=== PATIENT | female | born 1940 | race Caucasian/White ===

== ENCOUNTER 2018-01-24 11:01 | Emergency (ER) | payer MEDICARE ==
[~2018-01-24] VITALS: Ht 165.1 cm; Wt 42.6 kg
[~2018-01-24 11:01] MED LIST: CITRUS CALCIUM1 EACH PO; DOXYCYCLINE 10100 M1 PO; FISH OIL 1,001000 M2 PO; LEVAQUIN 500 M500 M2 PO; LISINOPRIL10 MG PO; MAGOX 400400 MG PO; PREDNISONE 10 M10 MG PO; PROAIR HFA8.5 GM INH; PROTONIX40 M1 PO; ROBITUSSIN100 MG/53 PO; TESSALON PERLE100 MG PO
[2018-01-24 11:19] LABS: URINE BILIRUBIN NEGATIVE (Negative); URINE BLOOD 1+ (Negative); URINE CLARITY SL CLOUDY; URINE COLOR YELLOW; URINE GLUCOSE-RANDOM NEGATIVE (Negative); URINE KETONES NEGATIVE (Negative); URINE NITRITE-REFLEX NEGATIVE (Negative); URINE PROTEIN TRACE (Negative); URINE SPECIFIC GRAVITY 1.015 (1.005-1.030); URINE UROBILINOGEN 0.2 E.U./dl (0.2-1.0)
[2018-01-24 11:34] LABS: URINE LEUKOCYTES-REFLEX 3+ (Negative)
[2018-01-24 11:35] LABS: CASTS None Seen /LPF (None Seen); CRYSTALS None Seen /LPF (None Seen); MUCUS None Seen strn/LPF (None Seen); SQUAMOUS 4-10 Moderate /LPF (0-3); URINE RBC 3-10 Few /HPF (0-2); URINE WBC-REFLEX >25 Many /HPF (0-5)
[2018-01-24] MEDS ORDERED: KEFLEX500 M1 PO (11:42)
[2018-01-24 11:47] VITALS: BP 134/55
--- NOTE | 2018-03-15 11:03 | NUR ---
Nutrition: Pt assessed for low BMI, 16.9. Usual wt is 96#, today's wt is 100#. No recent wt changes. ~96# x several years. Reported fair appetite. Regular diet. Albumin 2.8. H/o: COPD/smoker, HTN. Has UTI, lung nodule. Physician indicated moderate PCM - agree. Pt likely to discharge today, but RD will order Ensure HP for dinner tonight in case pt is not dischrged. Pt would benefit from oral supplement. Otherwise, no other nutrtion interventions needed today. GOALS: continue adequate oral intake/supplement intake, no wt loss from 96#. Mild risk.
== END 2018-01-24 11:48 | disposition home or self-care (01) ==
LOC: M.ERS 11:01
PROVIDERS: Emergency Medicine Emergency Medical Services
DX: N39.0 Urinary tract infection, site not specified (principal); I10 Essential (primary) hypertension; F17.210 Nicotine dependence, cigarettes, uncomplicated; Z88.0 Allergy status to penicillin; Z90.49 Acquired absence of other specified parts of digestive tract

== ENCOUNTER 2018-03-14 16:16 | Observation (INO) | payer MEDICARE ==
[~2018-03-14] VITALS: Ht 165.1 cm; Wt 45.4 kg
[~2018-03-14 16:16] MED LIST changes: +KEFLEX500 M1 PO
[2018-03-14 16:19] VITALS: BP 160/82
[2018-03-14 16:35] LABS: URINE BILIRUBIN NEGATIVE (Negative); URINE BLOOD NEGATIVE (Negative); URINE CLARITY CLEAR; URINE COLOR YELLOW; URINE GLUCOSE-RANDOM NEGATIVE (Negative); URINE KETONES NEGATIVE (Negative); URINE LEUKOCYTES 3+ (Negative); URINE NITRITE NEGATIVE (Negative); URINE PROTEIN NEGATIVE (Negative); URINE SPECIFIC GRAVITY <= 1.005 (1.005-1.030); URINE UROBILINOGEN 0.2 E.U./dl (0.2-1.0)
[2018-03-14 16:50] LABS: MUCUS None Seen strn/LPF (None Seen); SQUAMOUS >10 Many /LPF (0-3)
[2018-03-14 16:51] LABS: TRANSITIONAL EPITHEL CELL 0-3 Few /LPF (None Seen); URINE WBC 6-15 Few /HPF (0-5)
[2018-03-14 16:52] LABS: BACTERIA None Seen /HPF (None Seen); CASTS None Seen /LPF (None Seen); CRYSTALS None Seen /LPF (None Seen); URINE RBC None Seen /HPF (0-2)
[2018-03-14 16:54] LABS: HEMATOCRIT 43.2 % (37.0-47.0); HEMOGLOBIN 14.7 gm/dL (12.0-15.0); MCH 31.1 pg (26.0-34.0); MCV 91.4 fL (80.0-100.0); MPV 7.9 fl. (7.2-11.1); NUCLEATED RBCS 1 /100WBC; PLATELET COUNT* 253 thou/uL (150-400); RBC 4.73 mil/uL (4.20-5.00); RDW-CV 14.1 % (10.5-14.5); WBC 22.4 thou/uL (4.0-11.0)
[2018-03-14 17:17] LABS: ABSOLUTE EOSINOPHILS 0.2 thou/uL (0.0-0.7); ABSOLUTE LYMPHOCYTES 18.4 thou/uL (0.8-5.3); ABSOLUTE MONOCYTES 0.4 thou/uL (0.0-1.2); ABSOLUTE NEUTROPHILS 3.4 thou/uL (1.6-8.1)
[2018-03-14 17:18] LABS: PLATELET ESTIMATE ADEQUATE
[2018-03-14 17:32] LABS: ANION GAP 4 mmol/L (7-16); BUN 10 mg/dL (7-18); CALCIUM 9.1 mg/dL (8.5-10.1); CHLORIDE 98 mmol/L (98-107); CO2 31 mmol/L (21-32); CREATININE 0.6 mg/dL (0.6-1.3); GLUCOSE 100 mg/dL (70-99); POTASSIUM 3.5 mmol/L (3.5-5.1); SODIUM 133 mmol/L (136-145)
[2018-03-14 17:36] LABS: ALKALINE PHOSPHATASE 66 U/L (46-116); LIPASE 311 U/L (73-393); SGOT 18 U/L (15-37); SGPT 20 U/L (30-65); TOTAL BILIRUBIN 0.3 mg/dL (<0.1-1.0); TOTAL PROTEIN 6.9 g/dL (6.4-8.2); TROPONIN-I LEVEL <0.06 ng/mL (<0.06)
[2018-03-14 20:03] VITALS: BP 131/65
[2018-03-14 20:05] VITALS: BP 153/82
[2018-03-14] MEDS ORDERED: FISH OIL 1,001000 M2 PO ×2 (20:22)
[2018-03-15] VITALS: BP 107/62
[2018-03-15 04:00] VITALS: BP 121/63
[2018-03-15 04:49] LABS: HEMATOCRIT 34.8 % (37.0-47.0); MCH 31.3 pg (26.0-34.0); MCHC 34.2 g/dL (28.0-37.0); MCV 91.4 fL (80.0-100.0); MPV 8.1 fl. (7.2-11.1); RBC 3.81 mil/uL (4.20-5.00); RDW-CV 13.6 % (10.5-14.5)
[2018-03-15 05:04] LABS: HEMOGLOBIN 11.9 gm/dL (12.0-15.0)
[2018-03-15 05:39] LABS: ALBUMIN 2.8 g/dL (3.4-5.0); CALCIUM 7.9 mg/dL (8.5-10.1); CREATININE 0.6 mg/dL (0.6-1.3); TOTAL BILIRUBIN 0.2 mg/dL (<0.1-1.0); TOTAL PROTEIN 4.7 g/dL (6.4-8.2)
[2018-03-15 05:43] LABS: POTASSIUM 4.5 mmol/L (3.5-5.1)
[2018-03-15 08:10] VITALS: BP 118/58
[2018-03-15] MEDS ORDERED: LEVAQUIN 500 M500 M3 PO (08:46)
[2018-03-15 11:19] VITALS: BP 118/58
[2018-03-15] MEDS ORDERED: FISH OIL 1,001000 M2 PO (11:25)
[2018-03-15 12:33] VITALS: BP 110/70
--- NOTE | 2018-03-15 14:37 | EKG ---
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 03/15/18 1436 1650 1650 Jose Manuel Mcduffie MD, [facility] /EPI
== END 2018-03-15 17:18 | disposition home or self-care (01) ==
LOC: M.ERS 16:16 → M.TBA-ER 19:05 → M.2W 19:05
PROVIDERS: Emergency Medicine Emergency Medical Services; Nurse Practitioner Family; ADMIT Internal Medicine
DX: J44.9 Chronic obstructive pulmonary disease, unspecified (principal); E44.0 Moderate protein-calorie malnutrition; I10 Essential (primary) hypertension; D72.828 Other elevated white blood cell count; R53.1 Weakness; R53.81 Other malaise; R91.1 Solitary pulmonary nodule; F17.210 Nicotine dependence, cigarettes, uncomplicated; Z72.89 Other problems related to lifestyle; Z90.49 Acquired absence of other specified parts of digestive tract; Z98.890 Other specified postprocedural states; Z87.440 Personal history of urinary (tract) infections

== ENCOUNTER 2018-10-07 09:45 | Emergency (ER) | payer MEDICARE ==
[~2018-10-07] VITALS: Ht 165.1 cm; Wt 44.5 kg
[~2018-10-07 09:45] MED LIST changes: +LEVAQUIN 500 M500 M3 PO
[2018-10-07 10:18] LABS: HEMATOCRIT 41.9 % (37.0-47.0); MCH 30.3 pg (26.0-34.0); MCHC 33.3 g/dL (28.0-37.0); MPV 7.4 fl. (7.2-11.1); NUCLEATED RBCS 1 /100WBC; PLATELET COUNT* 247 thou/uL (150-400); RBC 4.61 mil/uL (4.20-5.00); RDW-CV 14.2 % (10.5-14.5); WBC 22.2 thou/uL (4.0-11.0)
[2018-10-07 10:30] LABS: ANION GAP 10 mmol/L (7-16); BUN 11 mg/dL (7-18); CALCIUM 9.4 mg/dL (8.5-10.1); CHLORIDE 103 mmol/L (98-107); CO2 29 mmol/L (21-32); CREATININE 0.7 mg/dL (0.6-1.3); GLUCOSE 102 mg/dL (70-99); POTASSIUM 3.6 mmol/L (3.5-5.1); SODIUM 142 mmol/L (136-145); TROPONIN-I LEVEL <0.06 ng/mL (<0.06)
[2018-10-07 10:39] LABS: ALBUMIN 3.8 g/dL (3.4-5.0); ALKALINE PHOSPHATASE 63 U/L (46-116); LIPASE 482 U/L (73-393); MAGNESIUM 1.8 mg/dL (1.8-2.4); NT-PRO BRAIN NAT PEPTIDE 149 pg/mL (<300); SGOT 22 U/L (15-37); SGPT 25 U/L (30-65); TOTAL BILIRUBIN 0.4 mg/dL (<0.1-1.0); TOTAL PROTEIN 6.7 g/dL (6.4-8.2)
[2018-10-07 10:44] LABS: ABSOLUTE LYMPHOCYTES 20.6 thou/uL (0.8-5.3); ABSOLUTE MONOCYTES 0.2 thou/uL (0.0-1.2); ABSOLUTE NEUTROPHILS 1.3 thou/uL (1.6-8.1); ATYPICAL LYMPHS 3 %; PLATELET ESTIMATE ADEQUATE
[2018-10-07 12:30] VITALS: BP 145/75
[2018-10-07] MEDS ORDERED: CIPRO500 MG PO (12:35)
[2018-10-07] MEDS ORDERED: FLAGYL500 M1 PO (12:35)
--- NOTE | 2018-10-07 17:59 | EKG ---
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 : 1940 Requested By: Wenceslao Prajapati Order Number: [id number] MD: Joshua Fu Measurements Intervals [place] Rate: 85 P: 80 [place]: 168 QRS: -6 QRSD: 90 T: 74 QT: 368 QTc: 438 Interpretive Statements Sinus rhythm Probable left atrial enlargement Anteroseptal infarct, age indeterminate Compared to ECG 03/14/2018 16:50:52 Myocardial infarct finding now present Atrial premature complex(es) no longer present Electronically Signed On 10-07-2018 17:59:32 CDT by Joshua Fu [email or web address] <ELECTRONICALLY SIGNED> By: Joshua Fu MD, FACC 10/07/18 1759 1002 1002 Joshua Fu MD, FACC /EPI
== END 2018-10-07 13:01 | disposition home or self-care (01) ==
LOC: M.ERS 09:45
PROVIDERS: Emergency Medicine Emergency Medical Services
DX: R07.2 Precordial pain (principal); F17.210 Nicotine dependence, cigarettes, uncomplicated; I10 Essential (primary) hypertension; J44.9 Chronic obstructive pulmonary disease, unspecified; Z90.49 Acquired absence of other specified parts of digestive tract; Z88.0 Allergy status to penicillin

== ENCOUNTER → 2018-11-28 | Outpatient (CLI) | payer MEDICARE ==
[~2018-11-28] MED LIST changes: +CIPRO500 MG PO; +FLAGYL500 M1 PO
== END ==
LOC: M.RAD 13:00
DX: N63.20 Unspecified lump in the left breast, unspecified quadrant (principal); R92.2 Inconclusive mammogram; R92.1 Mammographic calcification found on diagnostic imaging of breast

== ENCOUNTER 2018-12-05 14:25 | Emergency (ER) | payer MEDICARE ==
[~2018-12-05] VITALS: Ht 165.1 cm; Wt 44.5 kg
[2018-12-05] MEDS ORDERED: FISH OIL 1,001000 M2 PO (14:35)
[2018-12-05 15:15] LABS: HEMATOCRIT 42.1 % (37.0-47.0); HEMOGLOBIN 14.1 gm/dL (12.0-15.0); MCH 30.4 pg (26.0-34.0); MCHC 33.5 g/dL (28.0-37.0); MCV 90.8 fL (80.0-100.0); MPV 7.8 fl. (7.2-11.1); NUCLEATED RBCS 1 /100WBC; PLATELET COUNT* 286 thou/uL (150-400); RBC 4.63 mil/uL (4.20-5.00); RDW-CV 14.3 % (10.5-14.5); WBC 21.6 thou/uL (4.0-11.0)
[2018-12-05 15:19] LABS: ANION GAP 7 mmol/L (7-16); BUN 6 mg/dL (7-18); CALCIUM 9.6 mg/dL (8.5-10.1); CHLORIDE 102 mmol/L (98-107); CO2 32 mmol/L (21-32); CREATININE 0.8 mg/dL (0.6-1.3); GLUCOSE 179 mg/dL (70-99); POTASSIUM 3.8 mmol/L (3.5-5.1); SODIUM 141 mmol/L (136-145)
[2018-12-05 15:28] LABS: ALBUMIN 3.6 g/dL (3.4-5.0); ALKALINE PHOSPHATASE 55 U/L (46-116); LIPASE 211 U/L (73-393); MAGNESIUM 1.6 mg/dL (1.8-2.4); SGOT 18 U/L (15-37); SGPT 21 U/L (30-65); TOTAL BILIRUBIN 0.3 mg/dL (<0.1-1.0); TOTAL PROTEIN 6.3 g/dL (6.4-8.2); TROPONIN-I LEVEL <0.06 ng/mL (<0.06)
[2018-12-05 15:42] LABS: ABSOLUTE LYMPHOCYTES 18.6 thou/uL (0.8-5.3); ABSOLUTE MONOCYTES 0.2 thou/uL (0.0-1.2); ABSOLUTE NEUTROPHILS 2.8 thou/uL (1.6-8.1)
[2018-12-05 15:43] LABS: PLATELET ESTIMATE ADEQUATE
[2018-12-05 16:19] LABS: URINE BILIRUBIN NEGATIVE (Negative); URINE BLOOD NEGATIVE (Negative); URINE CLARITY CLEAR; URINE COLOR YELLOW; URINE GLUCOSE-RANDOM NEGATIVE (Negative); URINE KETONES NEGATIVE (Negative); URINE LEUKOCYTES-REFLEX NEGATIVE (Negative); URINE NITRITE-REFLEX NEGATIVE (Negative); URINE PROTEIN NEGATIVE (Negative); URINE SPECIFIC GRAVITY <= 1.005 (1.005-1.030); URINE UROBILINOGEN 0.2 E.U./dl (0.2-1.0)
[2018-12-05 17:01] VITALS: BP 82/61
--- NOTE | 2018-12-06 11:10 | EKG ---
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 : 1940 Requested By: Betsy Dixon Order Number: [id number] MD: Joshua Fu Measurements Intervals [place] Rate: 85 P: 83 [place]: 180 QRS: 30 QRSD: 90 T: 81 QT: 363 QTc: 432 Interpretive Statements Sinus rhythm Atrial premature complexes RSR' in V1 or V2, right VCD or RVH Compared to ECG 10/07/2018 10:02:10 Atrial premature complex(es) now present Electronically Signed On 12-06-2018 11:09:50 CDT by Joshua Fu [email or web address] <ELECTRONICALLY SIGNED> By: Joshua Fu MD, FAC 12/06/18 1109 1518 1518 Joshua Fu MD, [facility] /EPI
== END 2018-12-05 17:03 | disposition home or self-care (01) ==
LOC: M.ERS 14:25
PROVIDERS: Nurse Practitioner Family
DX: R53.83 Other fatigue (principal); I10 Essential (primary) hypertension; J44.9 Chronic obstructive pulmonary disease, unspecified; F17.210 Nicotine dependence, cigarettes, uncomplicated; Z87.440 Personal history of urinary (tract) infections; Z88.0 Allergy status to penicillin; Z90.49 Acquired absence of other specified parts of digestive tract; Z85.6 Personal history of leukemia

== ENCOUNTER 2019-11-25 23:07 | Emergency (ER) | payer MEDICARE ==
[~2019-11-25] VITALS: Ht 165.1 cm; Wt 47.2 kg
[2019-11-25 23:31] LABS: HEMATOCRIT 40.1 % (37.0-47.0); HEMOGLOBIN 13.8 gm/dL (12.0-15.0); MCH 31.3 pg (26.0-34.0); MCHC 34.4 g/dL (28.0-37.0); MCV 91.1 fL (80.0-100.0); MPV 7.5 fl. (7.2-11.1); NUCLEATED RBCS 1 /100WBC; PLATELET COUNT* 259 thou/uL (150-400); RBC 4.41 mil/uL (4.20-5.00); RDW-CV 14.7 % (10.5-14.5); WBC 23.4 thou/uL (4.0-11.0)
[2019-11-25 23:37] LABS: CALCIUM 9.1 mg/dL (8.5-10.1); CREATININE 0.6 mg/dL (0.6-1.3); POTASSIUM 3.6 mmol/L (3.5-5.1)
[2019-11-25 23:38] LABS: INR 0.9; PROTIME 9.7 Seconds (9.20-11.50)
[2019-11-25 23:47] LABS: ALBUMIN 3.7 g/dL (3.4-5.0); MAGNESIUM 1.7 mg/dL (1.8-2.4); TOTAL BILIRUBIN 0.4 mg/dL (<0.1-1.0); TOTAL PROTEIN 6.5 g/dL (6.4-8.2)
[2019-11-26 00:14] LABS: ABSOLUTE EOSINOPHILS 0.2 thou/uL (0.0-0.7); ABSOLUTE LYMPHOCYTES 20.4 thou/uL (0.8-5.3); ABSOLUTE MONOCYTES 0.5 thou/uL (0.0-1.2); ABSOLUTE NEUTROPHILS 2.3 thou/uL (1.6-8.1); ATYPICAL LYMPHS 3 %
[2019-11-26 00:15] LABS: PLATELET ESTIMATE ADEQUATE
[2019-11-26 00:16] LABS: BURR CELLS Occasional; POIKILOCYTOSIS 1+
[2019-11-26 00:46] LABS: URINE BILIRUBIN NEGATIVE (Negative); URINE BLOOD NEGATIVE (Negative); URINE CLARITY CLEAR; URINE COLOR YELLOW; URINE GLUCOSE-RANDOM NEGATIVE (Negative); URINE KETONES NEGATIVE (Negative); URINE LEUKOCYTES-REFLEX TRACE (Negative); URINE NITRITE-REFLEX NEGATIVE (Negative); URINE PROTEIN NEGATIVE (Negative); URINE SPECIFIC GRAVITY <= 1.005 (1.005-1.030); URINE UROBILINOGEN 0.2 E.U./dl (0.2-1.0)
[2019-11-26 01:11] LABS: CASTS None Seen /LPF (None Seen); SQUAMOUS 4-10 Moderate /LPF (0-3)
[2019-11-26 01:12] LABS: BACTERIA-REFLEX 1-9 Few /HPF (None Seen); CRYSTALS None Seen /LPF (None Seen); URINE RBC 0-2 Rare /HPF (0-2); URINE WBC-REFLEX 0-5 Rare /HPF (0-5)
[2019-11-26 01:31] VITALS: BP 123/50
--- NOTE | 2019-11-26 16:36 | EKG ---
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: [facility] : 1940 Requested By: Maryuri Lemus Order Number: [id number] MD: Earle Huynh Measurements Intervals [place] Rate: 87 P: 79 [place]: 182 QRS: 24 QRSD: 88 T: 79 QT: 365 QTc: 439 Interpretive Statements Sinus rhythm Atrial premature complexes RSR' in V1 or V2, right VCD or RVH Compared to ECG 12/05/2018 15:18:58 No significant changes Electronically Signed On 11-26-2019 16:34:35 CDT by Earle Huynh [email or web address] <ELECTRONICALLY SIGNED> By: Earle Huynh MD, FAC 11/26/19 1634 2312 2312 Earle Huynh MD, [facility] /EPI
== END 2019-11-26 01:19 | disposition home or self-care (01) ==
LOC: M.ERS 23:07
PROVIDERS: Emergency Medicine
DX: I10 Essential (primary) hypertension (principal); J44.9 Chronic obstructive pulmonary disease, unspecified; F17.210 Nicotine dependence, cigarettes, uncomplicated; Z90.49 Acquired absence of other specified parts of digestive tract; Z88.0 Allergy status to penicillin

== ENCOUNTER → 2019-12-15 | Outpatient (CLI) | payer MEDICARE ==
[~2019-12-15] MED LIST changes: +CARVEDILOL6.25 M1 PO; +CIPROFLOXACIN500 M1 PO; +XARELTO10 M1 PO
== END ==
LOC: M.LAB 09:25
PROVIDERS: ATTEND Internal Medicine Gastroenterology
DX: Z01.812 Encounter for preprocedural laboratory examination (principal); K74.60 Unspecified cirrhosis of liver

== ENCOUNTER 2020-01-15 08:10 | Emergency (ER) | payer MEDICARE ==
[~2020-01-15] VITALS: Ht 160 cm; Wt 53.9 kg
[~2020-01-15 08:10] MED LIST changes: -CARVEDILOL6.25 M1 PO; -CIPROFLOXACIN500 M1 PO; -XARELTO10 M1 PO
[2020-01-15] MEDS ORDERED: CARVEDILOL6.25 M1 PO (08:18)
[2020-01-15] MEDS ORDERED: XARELTO10 M1 PO (08:19)
[2020-01-15 09:17] LABS: HEMOGLOBIN 14.1 gm/dL (12.0-15.0)
[2020-01-15 09:19] LABS: HEMATOCRIT 40.3 % (37.0-47.0); MCH 31.7 pg (26.0-34.0); MCV 90.8 fL (80.0-100.0); MPV 8.1 fl. (7.2-11.1); NUCLEATED RBCS 1 /100WBC; PLATELET COUNT* 246 thou/uL (150-400); RBC 4.44 mil/uL (4.20-5.00); RDW-CV 14.4 % (10.5-14.5)
[2020-01-15 09:29] LABS: APTT 30.1 Seconds (25.0-31.3); INR 1.2; PROTIME 12.4 Seconds (9.20-11.50)
[2020-01-15 09:37] LABS: CALCIUM 8.6 mg/dL (8.5-10.1); CREATININE 0.7 mg/dL (0.6-1.3); POTASSIUM 3.9 mmol/L (3.5-5.1)
[2020-01-15 09:42] LABS: ALBUMIN 3.7 g/dL (3.4-5.0); CK-MB MASS 0.6 ng/mL (<0.5-3.6); MAGNESIUM 1.9 mg/dL (1.8-2.4); TOTAL BILIRUBIN 0.7 mg/dL (<0.1-1.0); TOTAL PROTEIN 6.4 g/dL (6.4-8.2)
[2020-01-15 09:57] LABS: ABSOLUTE LYMPHOCYTES 16.6 thou/uL (0.8-5.3); ABSOLUTE MONOCYTES 0.4 thou/uL (0.0-1.2); ATYPICAL LYMPHS 66 %
[2020-01-15 09:59] LABS: PLATELET ESTIMATE ADEQUATE
[2020-01-15 10:03] LABS: BURR CELLS 2+
[2020-01-15 10:04] LABS: OVALOCYTES Occasional; POIKILOCYTOSIS 2+
[2020-01-15 10:25] LABS: URINE BILIRUBIN NEGATIVE (Negative); URINE BLOOD NEGATIVE (Negative); URINE CLARITY CLEAR; URINE COLOR YELLOW; URINE GLUCOSE-RANDOM NEGATIVE (Negative); URINE KETONES NEGATIVE (Negative); URINE NITRITE-REFLEX NEGATIVE (Negative); URINE PROTEIN NEGATIVE (Negative); URINE UROBILINOGEN 0.2 E.U./dl (0.2-1.0)
[2020-01-15 10:26] LABS: URINE LEUKOCYTES-REFLEX 2+ (Negative)
[2020-01-15 10:30] LABS: SQUAMOUS >10 Many /LPF (0-3)
[2020-01-15 10:32] LABS: URINE RBC None Seen /HPF (0-2); URINE WBC-REFLEX 6-15 Few /HPF (0-5)
[2020-01-15 10:33] LABS: CASTS None Seen /LPF (None Seen); CRYSTALS None Seen /LPF (None Seen); MUCUS None Seen strn/LPF (None Seen)
[2020-01-15] MEDS ORDERED: CIPROFLOXACIN500 M1 PO (10:45)
[2020-01-15 10:54] VITALS: BP 165/79
--- NOTE | 2020-01-15 12:19 | EKG ---
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 : 1940 Requested By: Surinder Wilkins Order Number: [id number] MD: Joshua Fu Measurements Intervals [place] Rate: 63 P: 77 [place]: 166 QRS: -13 QRSD: 84 T: 72 QT: 408 QTc: 418 Interpretive Statements Sinus rhythm RSR' in V1 or V2, probably normal variant Compared to ECG 11/25/2019 23:12:09 Atrial premature complex(es) no longer present Electronically Signed On 01-15-2020 12:18:56 CDT by Joshua Fu [email or web address] <ELECTRONICALLY SIGNED> By: Joshua Fu MD, [facility] 01/15/20 1218 0825 4 Joshua Fu MD, [facility] /EPI
== END 2020-01-15 10:56 | disposition home or self-care (01) ==
LOC: M.ERS 08:10
PROVIDERS: Emergency Medicine
DX: N39.0 Urinary tract infection, site not specified (principal); I10 Essential (primary) hypertension; F17.210 Nicotine dependence, cigarettes, uncomplicated; J44.9 Chronic obstructive pulmonary disease, unspecified; I48.91 Unspecified atrial fibrillation; Z87.440 Personal history of urinary (tract) infections; Z90.89 Acquired absence of other organs; Z79.899 Other long term (current) drug therapy; Z88.0 Allergy status to penicillin

== ENCOUNTER 2020-01-26 09:35 | Emergency (ER) | payer MEDICARE ==
[~2020-01-26] VITALS: Ht 165.1 cm; Wt 46.7 kg
[~2020-01-26 09:35] MED LIST changes: +CARVEDILOL6.25 M1 PO; +CIPROFLOXACIN500 M1 PO; +XARELTO10 M1 PO
[2020-01-26 10:42] LABS: HEMATOCRIT 40.5 % (37.0-47.0); HEMOGLOBIN 13.9 gm/dL (12.0-15.0); MCH 31.3 pg (26.0-34.0); MCHC 34.3 g/dL (28.0-37.0); MCV 91.2 fL (80.0-100.0); MPV 7.9 fl. (7.2-11.1); NUCLEATED RBCS 0 /100WBC; PLATELET COUNT* 217 thou/uL (150-400); RBC 4.45 mil/uL (4.20-5.00); RDW-CV 13.9 % (10.5-14.5); WBC 19.5 thou/uL (4.0-11.0)
[2020-01-26 10:46] LABS: URINE BILIRUBIN NEGATIVE (Negative); URINE BLOOD NEGATIVE (Negative); URINE CLARITY CLEAR; URINE COLOR YELLOW; URINE GLUCOSE-RANDOM NEGATIVE (Negative); URINE KETONES NEGATIVE (Negative); URINE LEUKOCYTES-REFLEX NEGATIVE (Negative); URINE NITRITE-REFLEX NEGATIVE (Negative); URINE PROTEIN NEGATIVE (Negative); URINE UROBILINOGEN 0.2 E.U./dl (0.2-1.0)
[2020-01-26 10:52] LABS: CALCIUM 8.9 mg/dL (8.5-10.1); CREATININE 0.6 mg/dL (0.6-1.3); POTASSIUM 4.3 mmol/L (3.5-5.1)
[2020-01-26 10:56] LABS: ALBUMIN 3.7 g/dL (3.4-5.0); TOTAL BILIRUBIN 0.7 mg/dL (<0.1-1.0); TOTAL PROTEIN 6.3 g/dL (6.4-8.2)
[2020-01-26 11:16] LABS: ABSOLUTE LYMPHOCYTES 16.8 thou/uL (0.8-5.3); ABSOLUTE MONOCYTES 0.2 thou/uL (0.0-1.2); ABSOLUTE NEUTROPHILS 2.5 thou/uL (1.6-8.1); ATYPICAL LYMPHS 5 %
[2020-01-26 11:19] LABS: PLATELET ESTIMATE ADEQUATE
[2020-01-26 11:21] LABS: SCHISTOCYTES 1+
[2020-01-26 11:22] LABS: OVALOCYTES 1+
[2020-01-26 12:51] VITALS: BP 155/77
--- NOTE | 2020-01-26 17:07 | EKG ---
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
== END 2020-01-26 12:53 | disposition home or self-care (01) ==
LOC: M.ERS 09:35
PROVIDERS: Personal Emergency Response Attendant
DX: I16.0 Hypertensive urgency (principal); I10 Essential (primary) hypertension; I48.91 Unspecified atrial fibrillation; K74.60 Unspecified cirrhosis of liver; F17.210 Nicotine dependence, cigarettes, uncomplicated; Z90.49 Acquired absence of other specified parts of digestive tract; Z98.82 Breast implant status; Z88.0 Allergy status to penicillin

== ENCOUNTER → 2020-02-24 | Outpatient (CLI) | payer MEDICARE ==
--- NOTE | 2020-02-24 15:53 | 2DMMODE ---
[place] [address] 2 D/M-MODE ECHOCARDIOGRAM Name: HAYLEY PEREZ Room: [facility]#: [id number] Admission: 02/24/20 Attend Phys: Earle Huynh, Discharge: Date of : 40 Date of Service: 02/24/20 1552 Report #: [id number] THIS REPORT FOR: cc: Pierre Swann Adam J DO Blick, David R. MD [facility] ~ APPROVED REPORT Study performed: 02/24/2020 14:28:42 EXAM: Comprehensive 2D, Doppler, and color-flow Echocardiogram Patient Location: Out-Patient Status: routine BSA: 1.50 HR: 72 bpm BP: 144/78 mmHg Rhythm: NSR Other Information Study Quality: Good Indications Atrial Fibrillation 2D Dimensions IVSd: 7.44 (7-11mm) LVOT Diam: 19.70 (18-24mm) LVDd: 42.30 mm PWd: 7.44 (7-11mm) Ascending Ao: 29.35 (22-36mm) LVDs: 25.79 (25-40mm) Aortic Root: 33.49 mm Volumes Left Atrial Volume (Systole) LA ESV Index: 26.30 mL/m2 Aortic Valve AoV Peak Christiano.: 0.96 m/s AO Peak Gr.: 3.72 mmHg LVOT Max P.27 mmHg AO Mean Gr.: 2.06 mmHg LVOT Mean P.06 mmHg LVOT Max V: 0.75 m/s AO V2 VTI: 20.21 cm LVOT Mean V: 0.47 m/s ASHWINI (VTI): 2.55 cm2 LVOT V1 VTI: 16.91 cm AI [place]: 1.39 m/s2 [place] [address] 2 D/M-MODE ECHOCARDIOGRAM Name: HAYLEY PEREZ Room: [facility]#: [id number] Admission: 02/24/20 Attend Phys: Earle Huynh, Discharge: Date of : 40 Date of Service: 02/24/20 1552 Report #: [id number] AI PHT: 682.34 ms Mitral Valve E/A Ratio: 1.08 MV Decel. Time: 188.41 ms MV E Max Christiano.: 0.60 m/s MV PHT: 54.64 ms MVA (PHT): 4.03 cm2 TDI E/Lateral E': 6.67 E/Medial E': 7.50 Medial E' Christiano.: 0.08 m/s Lateral E' Christiano.: 0.09 m/s Pulmonary Valve PV Peak Christiano.: 0.83 m/s PV Peak Gr.: 2.72 mmHg Tricuspid Valve RAP Estimate: 5.00 mmHg TR Peak Gr.: 18.83 mmHg RVSP: 23.00 mmHg PA Pressure: 23.00 mmHg Left Ventricle The left ventricle is normal size. There is normal LV segmental wall motion. There is normal left ventricular wall thickness. Left ventricular systolic function is normal. The left ventricular ejection fraction is within the normal range. LVEF is 60-65%. The left ventricular diastolic function is normal. Right Ventricle The right ventricle is normal size. The right ventricular systolic function is normal. Atria The left atrium size is normal. The right atrium size is normal. Aortic Valve The aortic valve is normal in structure. Mild aortic regurgitation. There is no aortic valvular stenosis. Mitral Valve The mitral valve is normal in structure. Mild mitral regurgitation. No evidence of mitral valve stenosis[place] [address] 2 D/M-MODE ECHOCARDIOGRAM Name: HAYLEY PEREZ Room: [facility]#: [id number] Admission: 02/24/20 Attend Phys: Earle Huynh, Discharge: Date of : 40 Date of Service: 02/24/20 1552 Report #: [id number] The tricuspid valve is normal in structure. Mild tricuspid regurgitation. estimated pa pressure 25 mm Hg Pulmonic Valve The pulmonary valve is normal in structure. There is no pulmonic valvular regurgitation. Great Vessels The aortic root is normal in size. IVC is normal in size and collapses >50% with inspiration. Pericardium There is no pericardial effusion. <Conclusion> LVEF is 60-65%. Mild aortic regurgitation. Mild mitral regurgitation. <ELECTRONICALLY SIGNED> By: Joshua Fu MD, [facility] 02/24/20 1552 155 155 Joshua Fu MD, FACC /INF
--- NOTE | 2020-02-24 17:37 | CARDNUC ---
[place] [address] CARDIAC NUCLEAR IMAGING REPORT Name: HAYLEY PEREZ Room: [facility]#: [id number] Admission: 02/24/20 Attend Phys: Earle Huynh, Discharge: Date of : 40 Date of Service: 02/24/20 1737 Report #: [id number] THIS REPORT FOR: cc: Pierre Swann Adam J DO Biggs, F. Douglas MD [facility] ~ APPROVED REPORT Study performed: 02/24/2020 12:15:00 Indication: Dyspnea, Afib/Aflutter. Patient Location: Out-Patient Stress Tech: Krista Pearson Stress Nurse: Luz Torres RN Ht: 5 ft 5 in Wt: 106 lbs BSA: 1.51 m2 BMI: 17.63 Medical History Medical History: Dyspnea, AFib/Aflutter, CLL, HTN, Occasional smoker, family HX of CAD. Medications: ASA 81 Mg, Carvedilol, Fish oil [place] 3's, Amlodipine. Allergies: Penicillins. Cardiac Risk Factors: Age, Current Smoker, FHX of CAD, HTN, AFib/Aflutter, Dyspnea. Previous Cardiac Procedures: None noted. Pretest Chest Pain Characteristics: No chest pain Exercise History: Indeterminate Physical Disabilities: HX AFib/Aflutter. Meds Held (24 hrs): Carvedilol. Resting Data Rest SPECT myocardial perfusion imaging was performed in supine position 30 minutes following the intravenous injection of 9.7 mCi of Tc-99m Sestamibi. Time of rest injection: 13:05 The images were gated to evaluate regional wall motion and calculate left ventricular ejection fraction. Administration Route: IV Administration Site: Right Wrist Pharmacologic Stress Pharmacologic stress test was performed by injecting Regadenoson 0.4 [place] [address] CARDIAC NUCLEAR IMAGING REPORT Name: HAYLEY PEREZ Room: [facility] ANYA Rudolph#: [id number] Admission: 02/24/20 Attend Phys: Earle Huynh, Discharge: Date of : 40 Date of Service: 02/24/20 1737 Report #: [id number] mg IV push over 10-15 seconds immediately followed by the intravenous injection of 35.3 mCi of Tc-99m Sestamibi. Time of stress injection: 14:35 Administration Route: IV Administration Site: Right Wrist Heart Rate at time of stress injection: 108 bpm. Gated Stress SPECT was performed 45 minutes after stress injection. The images were gated to evaluate regional wall motion and calculate left ventricular ejection fraction. Prone imaging was performed. Stress Test Details Stress Test: Pharmacologic stress testing performed using 0.4 mg of regadenoson per 5 mL given IV over 10 seconds. Reason for pharmacologic stress test: HX AFib/Aflutter.. HR Max Heart Rate (APMHR): 141 bpm Resting HR: 64 bpm Target HR (85% APMHR): 119 bpm Max HR Achieved: 108 bpm % of APMHR: 76 Recovery HR: 88 bpm HR response to stress: Normal HR response to stress BP Resting BP: 157/76 mmHg Max BP: 139/79 mmHg Recovery BP: 144/78 mmHg BP response to stress: Normal blood pressure response to stress. ECG Resting ECG: Sinus Rhythm, normal EKG Stress ECG: Sinus Tachycardia, normal EKG Arrhythmia: None Recovery ECG: Sinus Rhythm, normal EKG Recovery ST Change: None Recovery Arrhythmia: APC,, VPCs Clinical Reason for Termination: Completed protocol Stress Symptoms: Dyspnea, weakness/fatigue. Exercise duration: 00 min 00 sec Exercise capacity: 1.00 METs Nurse Comments A 79 year old female presented for a sitting Lexiscan r/[place] [address] CARDIAC NUCLEAR IMAGING REPORT Name: HAYLEY PEREZ Room: [facility]#: [id number] Admission: 02/24/20 Attend Phys: Earle Huynh, Discharge: Date of : 40 Date of Service: 02/24/20 1737 Report #: [id number] AFib/Aflutter and dyspnea. Test well tolerated. Recovery unremarkable with PO caffeine. Patient was escorted to Echo then to Nuclear Medicine for imaging. Patient was stable and stated she felt good at that time. Stress ECG Conclusion Normal hemodynamic response to pharmacologic stress. Clinical: Non-ischemic Non-diagnostic pharmacologic EKG stress due to failure to attain target HR. Study Quality Study: Good Artifact: Mild Breast artifact Lung Uptake: Normal Study Data At rest, the left ventricular ejection fraction was 67%.. Post stress, the left ventricular ejection was 62%.. SSS: 7 SRS: 0 SDS: 7 TID = 0.99. Perfusion The resting study demonstrated a small mild anterior defect. The post-rest images also demonstrate a small mild anterior defect. Prone images likewise demonstrate a small mild anterior defect. This persistent anterior defect could be due to breast attenuation artifact are a possible old anterior infarct. There is no regional wall motion abnormality present and I favor breast attenuation artifact. Images were reviewed using [employer]. Wall Motion Normal left ventricular wall motion. Nuclear Conclusion ECG Findings: non-diagnostic Clinical Findings: negative for ischemia Nuclear Findings: negative for ischemia Exercise Capacity: not assessed Left Ventricular Function: normal Risk Study: low Normal study. No scintigraphic evidence [place] [address] CARDIAC NUCLEAR IMAGING REPORT Name: HAYLEY PEREZ Room: [facility]#: [id number] Admission: 02/24/20 Attend Phys: Earle Huynh, Discharge: Date of : 40 Date of Service: 02/24/20 1737 Report #: [id number] <Conclusion> Normal hemodynamic response to pharmacologic stress. Clinical: Non-ischemic Non-diagnostic pharmacologic EKG stress due to failure to attain target HR. <ELECTRONICALLY SIGNED> By: Jacqueline Frias MD, [facility] 02/24/201736 36 36 Jacqueline Frias MD, FAC /INF
== END ==
LOC: M.NUC 12:06 → M.CRD 02-27 14:00 → M.NUC 02-27 14:00
PROVIDERS: ATTEND Internal Medicine Cardiovascular Disease
DX: I08.3 Combined rheumatic disorders of mitral, aortic and tricuspid valves (principal); I48.91 Unspecified atrial fibrillation

== ENCOUNTER → 2020-02-25 | Outpatient (CLI) | payer MEDICARE | LOC: M.RAD 10:40 | PROVIDERS: ATTEND Family Medicine | DX: Z12.31 Encounter for screening mammogram for malignant neoplasm of breast (principal); N64.89 Other specified disorders of breast ==

== ENCOUNTER → 2021-03-04 | Outpatient (CLI) | payer MEDICARE | LOC: M.RAD 02-24 09:30 | PROVIDERS: ATTEND Family Medicine | DX: Z12.31 Encounter for screening mammogram for malignant neoplasm of breast (principal) ==

== ENCOUNTER → 2021-06-23 | Outpatient (CLI) | payer MEDICARE ==
[2021-06-23] VITALS (12 sets, daily range): BP systolic 101–163; BP diastolic 55–109
[~2021-06-23] MED LIST changes: +CITRATE OF MAG296 M1 PO
--- NOTE | 2021-06-23 13:13 | TEE ---
[place] [address] TRANSESOPHAGEAL ECHOCARDIOGRAM Name: HAYLEY PEREZ Room: [facility]#: [id number] Admission: 06/23/21 Attend Phys: Earle Huynh, Discharge: Date of : 40 Date of Service: 06/23/21 1312 Report #: [id number] THIS REPORT FOR: cc: Claire Bauman Maggie M. DO Liston, Michael J. MD [facility] ~ APPROVED REPORT Study performed: 06/23/2021 09:24:59 EXAM: Transesophageal Echocardiogram Patient Location: Out-Patient Status: routine BSA: 1.53 HR: 67 bpm BP: 127/68 mmHg Rhythm: Atrial Fibrillation Other Information Study Quality: Good Indications Atrial Fibrillation Echo Enhancing Agent Indication: Rule out Shunt Agent(s) / Amount(s) Used: Agitated Saline 10 cc Procedure After obtaining informed consent, patient underwent transesophageal echo in the [employer]. Type of Sedation : Conscious Sedation Sedation was administered by Mariely Dougherty RN. Sedation start time: 951 Case end Time: 1007 Sedation was achieved intravenously with: Versed (2) Fentanyl (50) Transesophageal probe was inserted and advanced into esophagus without difficulty by Earle Huynh MD, FACC. Echo enhancement indication: R/O Septal defect. Echo enhancement agent administered: Agitated Saline The LIBRADO was performed without complications. Throughout the procedure, the blood pressure, pulse oximetry, cardiac rhythm, and rate were monitored. The patient tolerated the procedure [place] [address] TRANSESOPHAGEAL ECHOCARDIOGRAM Name: HAYLEY PEREZ Room: [facility]#: [id number] Admission: 06/23/21 Attend Phys: Earle Huynh, Discharge: Date of : 40 Date of Service: 06/23/21 1312 Report #: [id number] from conscious sedation was uneventful and vital signs were stable. Left Ventricle The left ventricle is normal size. There is normal LV segmental wall motion. There is normal left ventricular wall thickness. Left ventricular systolic function is normal. LVEF is 55-60%. Right Ventricle The right ventricle is normal size. The right ventricular systolic function is normal. Atria The left atrium size is normal. No thrombus is visualized in the left atrium or appendage. The interatrial septum is intact with no evidence for an atrial septal defect. The right atrium size is normal. Aortic Valve The aortic valve is normal in structure. Mild aortic regurgitation. There is no aortic valvular stenosis. Mitral Valve The mitral valve is normal in structure. Mild mitral regurgitation. No evidence of mitral valve stenosis. Tricuspid Valve The tricuspid valve is normal in structure. Trace tricuspid regurgitation. Pulmonic Valve The pulmonary valve is normal in structure. There is no pulmonic valvular regurgitation. Great Vessels The aortic root is normal in size. Pericardium There is no pericardial effusion. <Conclusion> The left ventricle is normal size. There is normal left ventricular wall thickness. Left ventricular systolic function is normal. LVEF is 55-60%. The interatrial septum is intact [place] [address] TRANSESOPHAGEAL ECHOCARDIOGRAM Name: HAYLEY PEREZ Room: [facility]#: [id number] Admission: 06/23/21 Attend Phys: Earle Huynh, Discharge: Date of : 40 Date of Service: 06/23/211311 Report #: [id number] septal defect. The left atrium size is normal. No thrombus is visualized in the left atrium or appendage. Mild aortic regurgitation. Mild mitral regurgitation. Trace tricuspid regurgitation. <ELECTRONICALLY SIGNED> By: Earle Huynh MD, FACC 06/23/211311 11 11 Earle Huyhn MD, FACC /INF
== END | disposition home or self-care (01) ==
LOC: M.CL 08:40
PROVIDERS: ATTEND Internal Medicine Cardiovascular Disease
DX: I48.91 Unspecified atrial fibrillation (principal); I08.3 Combined rheumatic disorders of mitral, aortic and tricuspid valves; I10 Essential (primary) hypertension; J44.9 Chronic obstructive pulmonary disease, unspecified; Z98.890 Other specified postprocedural states; Z79.899 Other long term (current) drug therapy; Z79.01 Long term (current) use of anticoagulants; Z88.0 Allergy status to penicillin; Z88.8 Allergy status to other drugs, medicaments and biological substances